=== PATIENT | male | born 1975 | race Caucasian/White ===

== ENCOUNTER 2018-07-28 11:52 | Day surgery (SDC) | payer BC ==
[2018-07-28] MEDS ORDERED: Ketamine HCl 50 MG/ML IV ONE (11:53)
[2018-07-28] MEDS ORDERED: Xylocaine 1% Vial 30 ML PF IJ ONE (11:53)
[2018-07-28] MEDS ORDERED: Depo-Medrol 40 MG/ML IM ONE (11:53)
[2018-07-28] MEDS ORDERED: DIPRIVAN 200 MG/20 ML IV ONE (11:53)
[2018-07-28] MEDS ORDERED: Sodium Chloride 0.9(Preservative Free) 10 ML IJ ONE (11:53)
[2018-07-28] MEDS ORDERED: Lactated Ringers 1,000 ML IV ONE (13:49)
--- NOTE | 2018-07-28 15:30 | XRAY ---
Indication: Left L4-S1 transforaminal KOBI. Intraoperative fluoroscopy was provided for 18 seconds. 2 digital spot images submitted for interpretation demonstrates small amount of contrast in the expected region of the left L4-S1 nerve roots. Correlate with intraoperative findings/report.
--- NOTE | 2018-07-28 15:30 | XRAY ---
18 seconds of fluoroscopy was used in surgery for left L4-L5 and L5-S1 transforaminal KOBI.
== END 2018-07-28 13:47 | disposition home or self-care (01) ==
LOC: SDC-PAIN 11:52
PROVIDERS: ATTEND Psychiatry & Neurology Pain Medicine
DX: M54.16 Radiculopathy, lumbar region (principal); M54.40 Lumbago with sciatica, unspecified side; Z79.899 Other long term (current) drug therapy
CPT/HCPCS: 64483; 64484; 72020; 77003; J1030; J2001; J2704; Q9966

== ENCOUNTER 2019-10-19 10:43 | Day surgery (SDC) | payer BC ==
[2019-10-19] MEDS ORDERED: Sodium Chloride 0.9(Preservative Free) 10 ML IJ ONE (10:44)
[2019-10-19] MEDS ORDERED: Depo-Medrol 40 MG/ML IM ONE (10:44)
[2019-10-19] MEDS ORDERED: DIPRIVAN 200 MG/20 ML IV ONE (11:13)
[2019-10-19] MEDS ORDERED: Ketamine HCl 50 MG/ML ONE (11:13)
--- NOTE | 2019-10-19 13:00 | XRAY ---
Indication: Left transforaminal L3-L5 KOBI. Intraoperative fluoroscopy was provided for 29 seconds. 2 digital spot images submitted for interpretation demonstrates posterior needle tips projecting over the expected course of the left L3 and L4 nerve roots. Small amount of contrast injected for needle tip placement. Correlate with intraoperative findings/report.
--- NOTE | 2019-10-19 13:04 | XRAY ---
29 seconds of fluoroscopy was used in surgery for a left L3-L4 and L4-L5 transforaminal KOBI.
[2019-10-19] MEDS ORDERED: Lactated Ringers 1,000 ML IV ONE (14:35)
== END 2019-10-19 12:06 | disposition home or self-care (01) ==
LOC: SDC-PAIN 10:43
PROVIDERS: ATTEND Psychiatry & Neurology Pain Medicine
DX: M54.16 Radiculopathy, lumbar region (principal); Z79.899 Other long term (current) drug therapy
CPT/HCPCS: 64483; 64484; 72100; 77003; J1030; J2704; Q9966